=== PATIENT | female | born 2000 | race African-American/Black ===

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

== ENCOUNTER 2023-03-09 22:03 | Emergency (ER) | payer OTHER ==
[2023-03-09 23:23] LABS: #Eosinphils 0.1 thou/uL (0.0-0.7); #Monocytes 0.7 thou/uL (0.11-0.59); #Neutrophils 7.7 thou/uL (1.40-6.50); %Basophils 0.2 % (0.0-1.0); %Lymphocytes 14.2 % (28.0-48.0); %Monocytes 7.2 % (0.0-4.0); %Neutrophils 77.1 % (31.0-61.0); Hematocrit 40.9 % (36.0-47.0); Hemoglobin 12.4 g/dL (12.0-16.0); Mean Corpuscular HGB CONC 30.3 g/dL (32.0-36.0); Mean Corpuscular Hemoglobin 24.9 pg (25.0-35.0); Mean Corpuscular Volume 82.3 fl (78.0-98.0); Mean Platelet Volume 10.4 fL (7.4-10.4); Platelet Count 338 10x3/uL (130-400); RBC Distribution Width 14.8 % (11.5-14.5); Red Blood Cell (RBC) Count 4.97 mill/uL (4.00-5.20); White Blood Cell (WBC) Count 9.9 10x3/uL (4.8-10.8)
[2023-03-10 00:43] LABS: Chloride 107 mmol/L (98-107); Potassium 4.3 mmol/L (3.5-5.1); Sodium 141 mmol/L (136-145)
[2023-03-10 00:44] LABS: Calcium 9.4 mg/dL (7.8-10.44); Glucose 88 mg/dL (70-105)
[2023-03-10 00:45] LABS: Globulin 3.6 g/dL (2.4-3.5); Protein, Total 7.6 g/dL (6.0-8.3)
[2023-03-10 00:46] LABS: Anion Gap 14 mmol/L (10-20); Bilirubin, Total 0.2 mg/dL (0.2-1.2); Carbon Dioxide 24 mmol/L (22-29)
[2023-03-10 00:47] LABS: Alkaline Phosphatase 98 U/L (40-100)
[2023-03-10 00:48] LABS: BUN (Urea Nitrogen) 7 mg/dL (7.0-18.7); Calc. Creatinine Clearance 0 mL/min (70-130); Estimated GFR 113
[2023-03-10 00:49] LABS: AST (SGOT) 15 U/L (5-34)
[2023-03-10 00:50] LABS: ALT (SGPT) 12 U/L (8-55); Lipase 14 U/L (8-78)
== END 2023-03-10 01:31 | disposition left against medical advice (07) ==
LOC: ERS 22:03
DX: Z53.21 Procedure and treatment not carried out due to patient leaving prior to being seen by health care provider (principal)
CPT/HCPCS: 36415; 74019; 80053; 83605; 83690; 85025